=== PATIENT | female | born 1985 | race Caucasian/White ===

== ENCOUNTER 2019-04-10 02:40 | Inpatient (IN) | payer BC ==
[2019-04-10] VITALS (29 sets, daily range): BP systolic 100–135; BP diastolic 49–85; PULSE 74–108; TEMP 97.1–98
[~2019-04-10] VITALS: Ht 165.1 cm; Wt 115.9 kg
--- NOTE | 2019-04-10 02:50 | NUR ---
G2L1. 41-1. Ambulatory to LDR 4 with spouse. Clean gown on. EFM and TOCO explained and applied. Pt states she thinks her water might of broke at 0115 tonight but she is unsure due to it not being a large amount of fluid. Pt states she only has been leaking since 0115, clear fluid noted. Pt reports contractions every 7 mins. Denies vaginal bleeding. Reports good movement. SVE 3/80/-2, ballotable. Exam glove wet but amniotest X2 inconclusive. Plan of care explained to pt and who verbalize understanding. Assessment and vital signs completed. 0310: updated on pts status. See physican notification. Pt updated on plan of care. 0341: Pt called out stating she had a gush of fluids. Amnio test completed on pad and positive. 0350: updated and admit orders received. See physican notification. 0420: IV started and labs obtained via IV site. Pen G started. Plan of care and consents completed. 0447: Pt off monitors to ambulate in hallway. Mesh panties and pads given to pt.
[2019-04-10] MEDS ORDERED: PEPCID 20MG TAB20 MG PO (03:43)
[2019-04-10] MEDS ORDERED: PEPCID40 MG PO (03:46)
[2019-04-10] MEDS ORDERED: PROAIR HFA0.09 MG/AC IH (03:47)
[2019-04-10] MEDS ORDERED: PRENATAL MVI PO (03:47)
[2019-04-10] MEDS ORDERED: COLACE 100100 MG/CAP PO (03:48)
[2019-04-10 04:35] LABS: BASO % 0.2 % (0.0-2.0); EOS # 0.2 (0.0-0.7); EOS % 1.5 % (0-4.0); GRAN # 6.8 (1.4-6.5); GRAN % 66.1 % (42.2-75.2); HEMATOCRIT 32.1 % (37.0-47.0); HEMOGLOBIN 10.9 g/dl (12.5-16.0); LYMPH # 2.5 (1.2-3.4); LYMPH % 24.3 % (20.0-51.0); MEAN CELL VOLUME 88 fl (80.0-100.0); MEAN CORPUSCULAR HEMOGLOBIN 30 pg (27.0-31.0); MEAN CORPUSCULAR HGB CONC 34 g/dl (33.0-37.0); MEAN PLATELET VOLUME 10.9 fl (7.4-10.4); MONO # 0.7 (0.1-0.6); MONO % 6.8 % (1.7-9.3); PLATELET COUNT 179 K/mm3 (130-400); RED BLOOD COUNT 3.66 M/mm3 (4.10-5.30); REDCELL DISTRIBUTION WIDTH-CV 14.2 % (11.5-14.5)
--- NOTE | 2019-04-10 07:05 | NUR ---
Pt back to room after ambulation. EFM and toco applied. Difficulty tracing FHR. FHR audible and FM noted. Pt repositioned WL. FHR tracing intermittently. Accelerations noted. Pt updated on POC.
--- NOTE | 2019-04-10 08:16 | NUR ---
Cat 1 FHR strip obtained. Second dose of Rolando infused. Pt taken off monitors.
--- NOTE | 2019-04-10 09:24 | NUR ---
Pt back to room after ambulation. EFM and toco applied. Pt requesting pain medication prior to epidural. See physician notification. LR bolus infusing. 929- Pt sitting upright for epidural. Difficulty tracing FHR. FHR audible. FM noted. 955-Test dose administerd by Roddy Lynch CRNA. No adverse effects noted. See anesthesia record. Pt reposition WR. Updated on POC. Safety reviewed. Bed locked in low position. Call light within reach.
--- NOTE | 2019-04-10 13:20 | NUR ---
Pt states increase of pressure. SVE per this RN 9-10/[address]/-[address] Nunez notified. Orders to begin pushing. 1330-Dr. Nunez at bedside. Begins pushing with pt. 1341- of viable female attended by Dr. Nunez. Cord clamped x 2. Cut from umbilicus. Infant dried and placed on mother's abdomen. Care of to Tracee Durán RN. Apgars 8/9/9. 1345- of placenta. Pitocin infusing per protocol. Fundus firm at umbilicus. Bleeding WNL. Second degree laceration performed by Dr. Nunez. Lidocaine used for repair. See emar. Pericare performed. Ice pack applied. Pt updated on POC. Safety reviewed. No questions or concerns at this time.
[2019-04-11 01:18] VITALS: BP 125/71; PULSE 86; TEMP 98.4
[2019-04-11 05:15] VITALS: BP 114/68; PULSE 80; TEMP 97.4
[2019-04-11 07:27] VITALS: BP 121/78; PULSE 88; TEMP 97.5
[2019-04-11 12:00] VITALS: BP 125/63; PULSE 74; TEMP 97.4
--- NOTE | 2019-04-11 12:02 | NUR ---
Initial visit; Parents thanked Fixture Designer for offering congratulations and God's blessings for the of their daughter. Fixture Designer thanked family for choosing [facility].
[2019-04-11] MEDS ORDERED: IBU600 MG PO (16:32)
[2019-04-11 17:00] VITALS: BP 142/79; PULSE 83; TEMP 97.4
--- NOTE | 2019-04-11 17:00 | NUR ---
PATIENT DISCHARGE INSTRUCTIONS REVIEWED. SCRIPT FOR MOTRIN SENT TO PHARMACY AND REVIEWED. PATIENT VERBALIZES UNDERSTANDING. ESCORTED OFF UNIT WITH AND SPOUSE AT 1710
== END 2019-04-11 17:10 | disposition home or self-care (01) | DRG 807 ==
LOC: LDRO 02:40 → LDR 03:57 → OB 03:57
PROVIDERS: Student in an Organized Health Care Education/Training Program; ADMIT Obstetrics & Gynecology
PROC: 10E0XZZ Delivery of Products of Conception, External Approach (ICD-10-PCS; principal; 2019-04-10)
PROC: 0KQM0ZZ Repair Perineum Muscle, Open Approach (ICD-10-PCS; 2019-04-10)
DX: O48.0 Post-term pregnancy (principal); Z37.0 Single live birth; O99.824 Streptococcus B carrier state complicating childbirth; O99.214 Obesity complicating childbirth; O99.52 Diseases of the respiratory system complicating childbirth; J45.909 Unspecified asthma, uncomplicated; O70.1 Second degree perineal laceration during delivery; Z3A.41 41 weeks gestation of pregnancy
CPT/HCPCS: J0595; J2540; J2590; J7120